=== PATIENT | male | born 1950 | race Caucasian/White ===

== ENCOUNTER → 2017-12-01 | Outpatient (CLI) | payer MEDICARE ==
[2017-12-01 09:17] LABS: Creatinine, Urine Random 69.8 mg/dL (27.00-270.00)
[2017-12-01 09:28] LABS: Microalb/Creat Ratio UR, Rand 14.198 mg/g (0.000-30.000); Microalbumin, Random Urine 9.91 mg/L (0.000-20.000)
== END | disposition home or self-care (01) ==
LOC: LAB RH 08:15 → EDSTATUS 15:23
DX: E11.9 Type 2 diabetes mellitus without complications (principal)
CPT/HCPCS: 82043; 82570

== ENCOUNTER 2019-01-28 07:41 | Emergency (ER) | payer MEDICARE ==
[~2019-01-28] VITALS: Ht 180.3 cm; Wt 90.7 kg
[2019-01-28] MEDS ORDERED: BENADRYL25 MG PO (08:15)
[2019-01-28] MEDS ORDERED: INSULANPEN SC (08:17)
[2019-01-28] MEDS ORDERED: Novolog100 UNIT/1 (08:18)
[2019-01-28] MEDS ORDERED: Namenda10 MG PO (08:18)
[2019-01-28] MEDS ORDERED: CITA20 PO (08:18)
[2019-01-28] MEDS ORDERED: METF500C PO (08:19)
== END 2019-01-28 10:35 | disposition home or self-care (01) ==
LOC: ER 07:41
DX: R60.0 Localized edema (principal); Z88.0 Allergy status to penicillin; Z88.8 Allergy status to other drugs, medicaments and biological substances; F31.9 Bipolar disorder, unspecified
CPT/HCPCS: 96374; 99283-25; J1200

== ENCOUNTER → 2019-07-11 | Outpatient (CLI) | payer MEDICARE ==
[~2019-07-11] MED LIST: BENADRYL25 MG PO; CITA20 PO; INSULANPEN SC; METF500C PO; Namenda10 MG PO; Novolog100 UNIT/1
[2019-07-11 15:54] LABS: Source, Urine Clean Catch
[2019-07-11 16:06] LABS: Bilirubin, Urine Neg (Neg); Blood, Urine 3+ (Neg); Glucose Qualitative, Urine Neg (Neg); Ketones, Urine Neg (Neg); Leukocyte Esterase, Urine 2+ (Neg); Nitrite, Urine Pos (Neg); Protein, Urine 2+ (Neg); Urobilinogen, Urine NORM (Normal)
[2019-07-11 16:12] LABS: Appearance, Urine Hazy (Clear); Color, Urine Yellow (P-Yellow)
[2019-07-11 16:13] LABS: White Blood Cells, Urine TNTC /hpf (0-5)
[2019-07-11 16:14] LABS: Bacteria Many /hpf; Squamous Epithelial Cells Not Seen /hpf (Few)
== END | disposition home or self-care (01) ==
LOC: LAB RH 13:55 → EDSTATUS 15:41
PROVIDERS: Nurse Practitioner Adult Health
DX: N39.0 Urinary tract infection, site not specified (principal)
CPT/HCPCS: 81001; 87077; 87086; 87186

== ENCOUNTER → 2019-07-11 | Outpatient (CLI) | payer MEDICARE ==
[2019-07-11 10:00] LABS: Hematocrit 39.8 % (37.0-53.0); Hemoglobin 12.8 g/dL (13.5-17.5); Mean Corpuscular HGB Conc 32.2 g/dL (31.5-36.5); Mean Corpuscular Volume 100 fL (80-100); Mean Platelet Volume 10.3 fL (9.1-12.4); Platelet Count 209 K/mm3 (150-400); RDW Coefficient Variation 12.2 % (11.7-14.2); White Blood Cell Count 8.05 K/mm3 (4.00-11.30)
[2019-07-11 10:20] LABS: Anion Gap 4 mmol/L (6-16); Blood Urea Nitrogen 26 mg/dL (8-24); CO2, Blood 35 mmol/L (21-32); Calcium, Blood 9.3 mg/dL (8.5-10.1); Chloride, Blood 100 mmol/L (98-108); Creatinine, Blood 0.61 mg/dL (0.60-1.20); Glomerular Filtration Rate >60 (60-); Glucose, Blood 158 mg/dL (70-99); Potassium, Blood 4.6 mmol/L (3.5-5.5); Sodium, Blood 139 mmol/L (136-145)
== END ==
LOC: LAB RH 09:52 → EDSTATUS 14:03
PROVIDERS: Nurse Practitioner Adult Health
DX: M62.81 Muscle weakness (generalized) (principal)
CPT/HCPCS: 80048; 85027